=== PATIENT | male | born 1965 | race African-American/Black ===

== ENCOUNTER 2019-01-17 14:31 | Inpatient (IN) | payer MEDICARE, OTHER ==
[~2019-01-17] VITALS: Ht 180.3 cm; Wt 72.6 kg
[2019-01-17] MEDS ORDERED: LABETALOL 5MG/ML SYR 20 MG/4 ML SYRINGE IV ONE (14:45)
[2019-01-17 15:02] LABS: BASOPHILS % 1.8 % (0.0-2.0); EOSINOPHILS % 1.8 % (0.0-5.0); HEMATOCRIT. 36.6 % (42.0-52.0); HEMOGLOBIN. 12.1 g/dL (14.0-18.0); LYMPHOCYTES % 36.4 % (20.0-50.0); MEAN CORPUSCULAR HEMOGLOBIN 26.2 pg (28.0-32.0); MEAN CORPUSCULAR VOLUME 79.2 fL (80.0-94.0); MEAN PLATELET VOLUME 9.3 fl (7.4-10.4); MONOCYTES % 6.9 % (2.0-8.0); NEUTROPHILS % 53.1 % (40.0-76.0); PLATELET 270 x1000/uL (130-400); RED BLOOD CELL COUNT 4.62 mill/uL (4.7-6.1); RED CELL DISTRIBUTION WIDTH 13.7 % (11.6-14.6)
[2019-01-17 15:09] LABS: CHLORIDE 97 mEq/L (98-107)
[2019-01-17 15:11] LABS: PARTIAL THROMBOPLASTIN TIME 25.2 sec (23.4-31.0); PROTHROMBIN TIME 9.9 sec (9.6-11.0)
[2019-01-17 15:14] LABS: ETHANOL BLOOD < 10 mg/dL
[2019-01-17 15:27] LABS: BETA HYDROXYBUTYRATE 0.2 mMol/L (0.0-0.3)
[2019-01-17] MEDS ORDERED: INSULIN REGULAR (HUMULIN R) 300UNITS/3ML IV ONE (15:30)
[2019-01-17 16:12] LABS: BG BASE EXCESS -6.1 mmol/L (-2.0-2.0); BG CARBOXYHEMOGLOBIN 0.6 % (0.5-1.5); BG DEOXYHEMOGLOBIN 4.2 % (0.0-5.0); BG FRACTION INSPIRED OXYGEN 21; BG HCO3 ACT 19.8 mmol/L (22.0-26.0); BG OXYGEN SATURATION 95.8 % (92.0-98.5); BG OXYHEMOGLOBIN 95.2 % (94.0-97.0); BG PCO2 40.7 mmHg (35.0-45.0); BG PH 7.305 (7.350-7.450); BG PO2 88.4 mmHg (75.0-100.0); BG SAMPLE SITE RIGHT RADIAL; BG TOTAL HEMOGLOBIN 11.8 g/dL (12.0-18.0); BG VENT MODE ROOM AIR
[2019-01-17] MEDS ORDERED: GUAIFENESIN 200MG/10ML SUGAR FREE UDC PO PRN (16:15)
[2019-01-17] MEDS ORDERED: IPRATROPIUM/ALBUTEROL 0.5-3(2.5)MG/3ML NEB INH PRN (16:15)
[2019-01-17] MEDS ORDERED: DEXTROSE 50% WATER 50ML SYRINGE IV PRN (16:15)
[2019-01-17] MEDS ORDERED: TRAMADOL 50MG TABLET PO PRN (16:15)
[2019-01-17] MEDS ORDERED: DOCUSATE SODIUM 100MG CAPSULE PO PRN (16:15)
[2019-01-17] MEDS ORDERED: NITROGLYCERIN 0.4MG TABLET SL SL PRN (16:15)
[2019-01-17] MEDS ORDERED: ACETAMINOPHEN 325MG TABLET PO PRN (16:15)
[2019-01-17] MEDS ORDERED: MAGNESIUM/ALUMINUM HYDROXIDE/SIMETHICONE 30ML UDC PO PRN (16:15)
[2019-01-17] MEDS ORDERED: ZOLPIDEM TARTRATE 5MG TABLET PO PRN (16:15)
[2019-01-17] MEDS ORDERED: ONDANSETRON HCL 4MG/2ML INJ IV PRN (16:15)
[2019-01-17 16:43] LABS: T4 FREE 0.94 ng/dL (0.76-1.46)
[2019-01-17 16:59] LABS: FOLIC ACID (FOLATE) SERUM 13.2 ng/mL (>5.38)
[2019-01-17] MEDS: BLOOD SUGAR DIAGNOSTIC STRIP TEST SCH ×2 (17:21→20:16)
[2019-01-17 18:12] LABS: CLARITY URINE CLEAR (CLEAR); COLOR URINE YELLOW (YELLOW); KETONES URINE NEGATIVE (NEGATIVE); LEUKOCYTE ESTERASE URINE NEGATIVE (NEGATIVE); NITRITE URINE NEGATIVE (NEGATIVE); OCCULT BLOOD URINE 1+ (NEGATIVE); PROTEIN URINE 3+ (NEGATIVE); SPECIFIC GRAVITY URINE 1.016 (1.005-1.030); UROBILINOGEN URINE 0.2 E.U./dL (0.2-1.0)
[2019-01-17 18:22] LABS: *AMPHETAMINES SCREEN URINE NEGATIVE (NEGATIVE); *BARBITURATES SCREEN URINE NEGATIVE (NEGATIVE); *BENZODIAZEPINES SCREEN URINE NEGATIVE (NEGATIVE)
[2019-01-17 18:23] LABS: *COCAINE SCREEN URINE NEGATIVE (NEGATIVE); CANNABINOID URINE SCREEN NEGATIVE (NEGATIVE); PHENCYCLIDINE URINE SCREEN NEGATIVE (NEGATIVE)
[2019-01-17 18:25] LABS: METHADONE URINE SCREEN NEGATIVE (NEGATIVE); OPIATES URINE SCREEN NEGATIVE (NEGATIVE)
[2019-01-17] MEDS ORDERED: FUROSEMIDE 20MG/2ML VIAL IVP ONE (18:30)
[2019-01-17] MEDS: INSULIN LISPRO 100 UNITS/ML SUBCUT SCH ×2 (20:04→21:00)
[2019-01-17] MEDS: SODIUM CHLORIDE 0.9% 1,000 ML IV SCH (20:04)
[2019-01-17] MEDS: CLONIDINE 0.1MG TABLET PO PRN (20:16)
[2019-01-18 00:06] VITALS: BP 194/110
[2019-01-18] MEDS: METOPROLOL TARTRATE 25MG TABLET PO SCH ×3 (00:31→20:58)
[2019-01-18] MEDS: HYDRALAZINE HCL 50MG TABLET PO SCH ×4 (00:31→21:00)
[2019-01-18] MEDS: ATORVASTATIN CALCIUM 20MG TABLET PO SCH ×2 (00:31→20:58)
[2019-01-18] MEDS ORDERED: SIMV10TA6 PO (00:50)
[2019-01-18] MEDS ORDERED: NPH,100V SQ (00:50)
[2019-01-18] MEDS ORDERED: INSU100I28 SQ (00:50)
[2019-01-18] MEDS ORDERED: LOSA25TA12 PO (00:50)
[2019-01-18] MEDS ORDERED: NIFE10CA PO (00:50)
[2019-01-18] MEDS ORDERED: AMLO10TA80 PO (00:50)
[2019-01-18] MEDS: INSULIN GLARGINE UD 100 UNITS/ML SYR SUBCUT SCH ×2 (02:22→22:00)
[2019-01-18 04:00] VITALS: BP 146/85
[2019-01-18] MEDS: SODIUM CHLORIDE 0.9% 1,000 ML IV SCH ×2 (05:30→18:14)
[2019-01-18] MEDS: BLOOD SUGAR DIAGNOSTIC STRIP TEST SCH ×4 (07:20→21:00)
[2019-01-18 08:00] VITALS: BP 166/92
[2019-01-18] MEDS: ASPIRIN 325MG EC TABLET PO SCH (08:54)
[2019-01-18] MEDS: FAMOTIDINE 20MG TABLET PO SCH (08:54)
[2019-01-18] MEDS: ENOXAPARIN 30MG/0.3ML SYR SUBCUT SCH (08:55)
[2019-01-18] MEDS: AMLODIPINE 10MG TABLET PO SCH (08:55)
[2019-01-18] MEDS: INSULIN LISPRO 100 UNITS/ML SUBCUT SCH ×4 (09:00→20:58)
[2019-01-18 12:00] VITALS: BP 167/92
[2019-01-18 16:00] VITALS: BP 130/79
[2019-01-18 20:00] VITALS: BP 137/81
[2019-01-18] MEDS ORDERED: INSULIN GLARGINE UD 100 UNITS/ML SYR SUBCUT SCH (23:00)
[2019-01-19] VITALS: BP 163/87
[2019-01-19 04:00] VITALS: BP 155/86
[2019-01-19] MEDS: HYDRALAZINE HCL 50MG TABLET PO SCH (06:15)
[2019-01-19] MEDS: BLOOD SUGAR DIAGNOSTIC STRIP TEST SCH ×2 (06:20→12:20)
[2019-01-19] MEDS: INSULIN LISPRO 100 UNITS/ML SUBCUT SCH (09:04)
[2019-01-19] MEDS: ENOXAPARIN 30MG/0.3ML SYR SUBCUT SCH (09:07)
[2019-01-19] MEDS: FAMOTIDINE 20MG TABLET PO SCH (09:07)
[2019-01-19] MEDS: ASPIRIN 325MG EC TABLET PO SCH (09:07)
[2019-01-19] MEDS: AMLODIPINE 10MG TABLET PO SCH (09:08)
[2019-01-19] MEDS: METOPROLOL TARTRATE 25MG TABLET PO SCH (09:08)
[2019-01-19] MEDS: CLONIDINE 0.1MG TABLET PO PRN (09:09)
[2019-01-19] MEDS: SODIUM CHLORIDE 0.9% 1,000 ML IV SCH ×2 (09:10→13:20)
[2019-01-19 11:58] VITALS: BP 130/80
[2019-01-19] MEDS ORDERED: INSULIN GLARGINE UD 100 UNITS/ML SYR SUBCUT SCH (22:00)
== END 2019-01-19 15:52 | disposition home health service (06) | DRG 637 ==
LOC: ER 14:31 → 6WST 15:35 → SUPCPDRO 16:01 → ENRESERV 20:48
PROVIDERS: ADMIT Internal Medicine; ATTEND Internal Medicine
DX: E11.00 Type 2 diabetes mellitus with hyperosmolarity without nonketotic hyperglycemic-hyperosmolar coma (NKHHC) (principal); E43 Unspecified severe protein-calorie malnutrition; E87.1 Hypo-osmolality and hyponatremia; N17.9 Acute kidney failure, unspecified; I50.40 Unspecified combined systolic (congestive) and diastolic (congestive) heart failure; E11.65 Type 2 diabetes mellitus with hyperglycemia; D63.8 Anemia in other chronic diseases classified elsewhere; E83.51 Hypocalcemia; I11.0 Hypertensive heart disease with heart failure; K21.9 Gastro-esophageal reflux disease without esophagitis; Z79.4 Long term (current) use of insulin; Z68.22 Body mass index [BMI] 22.0-22.9, adult
CPT/HCPCS: 36415; 36600; 71045; 80061; 80305; 80320; 82010; 82375; 82607; 82746; 82805; 82962; 83036; 83735; 83880; 84439; 84443; 84484; 93005; 93306; 93970; 96374; 96375; 97162; 97166; 99291; J1650; J1815; J1940; J3490; G0480